=== PATIENT | female | born 1960 ===

== ENCOUNTER 2017-04-30 20:35 | Emergency (ER) | payer OTHER, BC ==
[2017-04-30 20:44] VITALS: PULSE 77; TEMP 97.9; BMI 27.6
[2017-04-30] MEDS ORDERED: SODIUM CHLORIDE 1,000 ML IV STA (22:30)
[2017-04-30] MEDS ORDERED: PANTOPRAZOLE SODIUM 40 MG in SODIUM CHLORIDE 100 ML IVPB ONE (22:30)
[2017-04-30] MEDS ORDERED: METOCLOPRAMIDE HCL INJECTION 10 MG/2 ML VIAL IVPB ONE (22:30)
[2017-04-30 22:52] LABS: MCH 26.9 pg (25.7-33.7); MCHC 32.6 g/dl (32.0-36.0); MEAN CELL VOLUME 82.5 fl (80-96); MEAN PLT VOLUME 9.2 fl (7.5-11.1); PLATELET COUNT 261 K/MM3 (134-434); RDW 13.9 % (11.6-15.6); WHITE BLOOD COUNT 6.8 K/mm3 (4.0-10.0)
[2017-04-30 23:04] LABS: URINE APPEARANCE CLEAR; URINE BILIRUBIN NEGATIVE (NEGATIVE); URINE BLOOD NEGATIVE (NEGATIVE); URINE COLOR STRAW; URINE GLUCOSE (UA) NEGATIVE (NEGATIVE); URINE KETONE NEGATIVE (NEGATIVE); URINE LEUK ESTERASE NEGATIVE (NEGATIVE); URINE NITRITE NEGATIVE (NEGATIVE); URINE PROTEIN NEGATIVE (NEGATIVE); URINE UROBILINOGEN NEGATIVE E.U./dl (0.2-1.0)
[2017-04-30] MEDS ORDERED: PANTOPRAZOLE SODIUM 100 ML IVPB ONE (23:10)
[2017-04-30] MEDS ORDERED: METOCLOPRAMIDE HCL INJECTION 10 MG/2 ML VIAL ONE (23:10)
[2017-04-30 23:14] LABS: ALBUMIN 3.4 g/dl (3.4-5.0); ALK PHOS 374 U/L (45-117); AMYLASE 31 U/L (25-115); ANION GAP 10 (8-16); BILIRUBIN,TOTAL 0.3 mg/dL (0.2-1.0); CALCIUM 11.2 mg/dL (8.5-10.1); CO2 27 mmol/L (21-32); CREATININE 2.1 mg/dL (0.55-1.02); GLUCOSE,RANDOM 103 mg/dL (74-106); SGOT/AST 31 U/L (15-37); SGPT/ALT 42 U/L (12-78); TOT PROT 7.1 g/dl (6.4-8.2)
[2017-04-30 23:23] VITALS: BP 104/64
--- NOTE | 2017-04-30 23:53 | PDOC ---
History of Present Illness - General Chief Complaint: Lightheaded Stated Complaint: SYNCOPE Time Seen by Provider: 04/30/17 22:23 History Source: Patient, Family Exam Limitations: No Limitations - History of Present Illness Initial Comments: 04/30/17 23:55 57yo Female patient w/ PmHx: Depression and Anxiety presents to ED c/o profound nausea x 4 weeks. Patient states about 2 weeks ago she went to [facility] urgent care and prescribed Zofran. Patient states this did not help. She follow up with her PCP and prescribed Zantac and Nexium. She also made appointment to see GI specialist Dr. Medrano on May 16. Patient states this is to long out and is having problems with eating and appetite. Patient reports she has been traveling back and forth to [place] every 2 weeks because her sister has been diagnosed with Terminal stage 4 Colon Ca. Associated Dry Cough. She denies fever, CP, Abd pain, vomiting, diarrhea, back pain, rash, or any other complaints at this time. Timing/Duration: constant Severity: moderate Modifying Factors: worse with: cold therapy, eating, immobilization, medication , movement, rest, other Associated Symptoms: denies: denies symptoms, chest pain, cough, diaphoresis, fever/chills, headaches, loss of appetite, malaise, nausea/vomiting, rash, seizure, shortness of breath, syncope, weakness, other Aspirin Received prior to arrival: No: no aspirin today, unknown, 81 mg x 1, 81 mg x 2, 81 mg x 3, 81 mg x 4, 325 mg x 1, provided at home, provided by EMS, provided by [facility] Contraindications(Core Measure): No: Allergy, Other, Active Blding w/i 24 hrs., Plavix, Receiving Warfarin Past History - Travel Traveled outside of the country in the last 30 days: No Close contact w/someone who was outside of country & ill: No - Past Medical History Allergies/Adverse Reactions: Allergies Allergy/AdvReac Type Severity Reaction Status Date / Time No Known Allergies Allergy Verified 04/30/17 20:41 Home Medications: Ambulatory Orders Ondansetron HCl [Zofran] 4 mg PO DAILY 04/30/17 Ranitidine HCl [Zantac] 150 mg PO DAILY 04/30/17 Metoclopramide HCl [Reglan -] 10 mg PO Q8H PRN #30 tablet 05/01/17 Psychiatric Problems: Yes (anxiety, depression) - Surgical History Abdominal Surgery: Yes - Psycho/Social/Smoking Cessation Hx Anxiety: Yes Suicidal Ideation: No Smoking Status: No Smoking History: Never smoked Number of Cigarettes Smoked Daily: 0 Review of Systems - Review of Systems Able to Perform ROS?: Yes Is the patient limited [place]er proficient: No Constitutional: No: Chills, Fever HEENTM: No: Throat Pain Respiratory: Yes: Cough (Dry). No: Shortness of Breath, Wheezing, Productive cough, Hemoptysis Cardiac (ROS): No: Chest Pain, Lightheadedness, Palpitations, Syncope, Chest Tightness ABD/GI: Yes: Nausea, Poor Appetite. No: Abdominal Distended, Constipated, Diarrhea, Difficulty Swallowing, Poor Fluid Intake, Rectal Bleeding, Vomiting, Abdominal cramping : No: Burning, Dysuria, Frequency, Flank Pain, Hematuria, Pain, Urgency All Other Systems: Reviewed and Negative *Physical Exam - Vital Signs Last Vital Signs Temp Pulse Resp BP Pulse Ox 97.9 F 77 18 104/64 99 04/30/17 20:37 04/30/17 20:37 04/30/17 20:37 04/30/17 23:21 04/30/17 20:37 - Physical Exam General Appearance: Yes: Nourished, Appropriately Dressed. No: Apparent Distress, Mild Distress, Moderate Distress, Severe Distress Neck: positive: Trachea midline, Supple. negative: Stridor, Lymphadenopathy (R) , Lymphadenopathy (L) Respiratory/Chest: positive: Lungs Clear, Normal Breath Sounds. negative: Chest Tender, Respiratory Distress, Accessory Muscle Use, Labored Respiration, Rapid RR, Rhonchi, Stridor, Wheezing Cardiovascular: positive: Regular Rhythm, Regular Rate Gastrointestinal/Abdominal: positive: Normal Bowel Sounds, Soft. negative: Distended, Guarding, Rebound, Tenderness Musculoskeletal: positive: Normal Inspection. negative: CVA Tenderness Extremity: positive: Normal Capillary Refill, Normal Inspection, Normal Range of Motion. negative: Pedal Edema, Swelling, Calf Tenderness, Erythema, Inflammation Integumentary: positive: Normal Color, Dry, Warm Neurologic: positive: insurance sales supervisor II-XII NML intact, Fully Oriented, Alert, Normal Mood/ Affect, Normal Response, Motor Strength 5/5 ED Treatment Course - LABORATORY CBC & Chemistry Diagram: 04/30/17 22:40 04/30/17 22:40 - ADDITIONAL ORDERS Additional order review: Laboratory Results 04/30/17 04/30/17 22:55 22:40 Sodium 138 Potassium 4.7 Chloride 101 Carbon Dioxide 27 Anion Gap 10 BUN 36 H Creatinine 2.1 H Creat Clearance w eGFR 24.36 Random Glucose 103 Calcium 11.2 H Total Bilirubin 0.3 AST 31 ALT 42 Alkaline Phosphatase 374 H Total Protein 7.1 Albumin 3.4 Total Amylase 31 Lipase 183 Urine Color Straw Urine Appearance Clear Urine pH 5.0 Urine Protein Negative Urine Glucose (UA) Negative Urine Ketones Negative Urine Blood Negative Urine Nitrite Negative Urine Bilirubin Negative Urine Urobilinogen Negative Ur Leukocyte Esterase Negative 04/30/17 22:40 RBC 4.76 MCV 82.5 MCHC 32.6 RDW 13.9 MPV 9.2 - Medications Given in the ED: ED Medications Discontinued Medications Generic Name Dose Route Start Last Admin Trade Name Freq PRN Reason Stop Dose Admin Pantoprazole Sodium 40 mg/ 100 mls @ 200 mls/hr 04/30/17 22:30 04/30/17 23:22 Sodium Chloride IVPB 04/30/17 22:59 200 mls/hr ONCE ONE Administration Sodium Chloride 1,000 mls @ 1,000 mls/hr 04/30/17 22:30 04/30/17 23:21 Normal Saline - IV 04/30/17 23:29 1,000 mls/hr ASDIR STA Administration Metoclopramide HCl 10 mg 04/30/17 22:30 04/30/17 23:22 Reglan Injection - IVPB 04/30/17 22:31 10 mg ONCE ONE Administration *DC/Admit/Observation/Transfer Diagnosis at time of Disposition: Nausea and vomiting Qualifiers: Vomiting type: unspecified Vomiting Intractability: non-intractable Qualified Code(s): R11.2 - Nausea with vomiting, unspecified - Discharge Dispostion Disposition: HOME Condition at time of disposition: Improved Admit: No - Prescriptions Prescriptions: Metoclopramide HCl [Reglan -] 10 mg PO Q8H PRN #30 tablet PRN Reason: Nausea - Patient Instructions Printed Discharge Instructions: DI for Nausea -- Adult Additional Instructions: FOLLOW UP WITH DR. HINTON. KEEP YOUR APPOINTMENT TO SEE GASTROENTEROLOGY IN APRIL. TAKE MEDICATIONS PRESCRIBED. RETURN IF SYMPTOMS WORSEN OR ANY CONCERNS FOR FURTHER EVALUATION. DRINK PLENTY FLUIDS. Print Language: MACEDONIAN - Post Discharge Activity Work/School Note: Back to Work
--- NOTE | 2017-05-01 17:23 | EKG ---
Test Reason : Blood Pressure : / mmHG Vent. Rate : 065 BPM Atrial Rate : 065 BPM P-R Int : 136 ms QRS Dur : 084 ms QT Int : 444 ms P-R-T Axes : 046 043 043 degrees QTc Int : 461 ms NORMAL SINUS RHYTHM POSSIBLE LEFT ATRIAL ENLARGEMENT JUNCTIONAL ST DEPRESSION, PROBABLY NORMAL BORDERLINE ECG NO PREVIOUS ECGS AVAILABLE Confirmed by JAH DAMIAN MD ([id number]) on 05/01/2017 5:22:29 PM Referred By: Confirmed By:JAH DAMIAN MD
== END 2017-05-01 04:05 | disposition home or self-care (01) ==
LOC: JER 20:35
PROC: 3E033GC Introduction of Other Therapeutic Substance into Peripheral Vein, Percutaneous Approach (ICD-10-PCS; principal; 2017-04-30)
DX: R11.2 Nausea with vomiting, unspecified (principal)
CPT/HCPCS: 36415; 74176-TC; 80053; 81003; 82150; 83690; 85027; 93005; 93010; 99282-25